=== PATIENT | male | born 1955 | race Caucasian/White ===

== ENCOUNTER 2019-05-07 11:33 | Inpatient (IN) | payer OTHER, MEDICARE, SELFPAY ==
[2019-05-07] VITALS (19 sets, daily range): BP systolic 130–187; BP diastolic 65–127; PULSE 64–107; RESP 11–24; TEMP 36.8–36.9; O2SAT 96–100
--- NOTE | ~2019-05-07 | US_ITS ---
EXAMINATION: US thrombin injection DATE: 05/09/2019 12:51 INDICATION: Left groin pseudoaneurysm. TECHNIQUE: The procedure and its risks, benefits, and alternatives were discussed with the patient. P otential risks discussed included groin artery or vein thrombosis. The patient understood the risks a nd agreed to proceed. The skin was prepped and draped in sterile fashion. 1% lidocaine was used for l ocal anesthesia. Under ultrasound guidance, a 25 gauge needle was inserted into the left groin pseudo aneurysm. Thrombin was injected into the pseudoaneurysm slowly to a total volume of 0.2 mL of 1000 U/ mL thrombin. The needle was removed. There were no immediate complications. FINDINGS: Ultrasound images demonstrate a left groin pseudoaneurysm. Final images demonstrate complete thrombos is of the pseudoaneurysm. IMPRESSION: 1. Successful ultrasound-guided left groin pseudoaneurysm thrombosis. Reviewed, dictated and finalized at location A. ING CAPTAIN
--- NOTE | ~2019-05-07 | US_ITS ---
EXAMINATION: US arterial duplex LE DATE: 05/09/2019 11:59 INDICATION: Left groin pain after cardiac catheterization. TECHNIQUE: Multiple grayscale and Doppler ultrasound images of the left inguinal region were obtained . COMPARISON: None FINDINGS: Left common femoral vein and femoral vein are patent. There is a 5.0 x 2.7 x 3.5 cm hematom a containing a 3.0 cm pseudoaneurysm with long neck superficial to left common femoral artery. IMPRESSION: 1. 3.0 cm pseudoaneurysm from left common femoral artery. Ultrasound-guided thrombin injection is rec ommended. Reviewed, dictated and finalized at location A. WAY RADIO INSTALLER IMPRESSION: 1. 3.0 cm pseudoaneurysm from left common femoral artery. Ultrasound-guided thr ombin injection is recommended.
--- NOTE | 2019-05-07 11:43 | ED.CHESTPAIN ---
HPI - Chest Pain General Chief Complaint: Chest Pain Stated Complaint: chest pain Time Seen by Provider: 05/07/19 11:42 Source: patient Mode of arrival: ambulatory Limitations: no limitations History of Present Illness HPI narrative: A 63 y/o male pt presents to the ED, with c/o chest tightness that began 45 minutes ago. He is unsure if he has had a similar event to this in the past. Pt has a PMHx of CAD, HTN, NIDDM, HLD and rheumatoid arthritis. Pt has a PSHx of a CABG in 2009 and a cardiac catheterization in 2009 and 2015. Pt denies any N/V or sweating. His programmer analyst health it is Dr. Isidro. MD complaint: chest pain (tightness) Pertinent past history: coronary artery disease and CABG Onset (ago): minute(s) (45) Timing of current episode: constant Quality: tightness Related Data Allergies Allergy/AdvReac Type Severity Reaction Status Date / Time morphine Allergy Unknown Hives / Verified 12/04/15 13:34 Red Face Penicillins Allergy Unknown Verified 12/04/15 13:34 Review of Systems Review of Systems: All systems reviewed & are unremarkable except as noted in HPI and below Constitutional: Constitutional: Denies excessive sweating Cardiovascular: Cardiovascular: Reports chest pain (tightness) Gastrointestinal: Gastrointestinal: Denies nausea and Denies vomiting PMFSH Past Medical History Medical History (Updated 05/07/19 @ 12:03 by [facility]) CAD (coronary artery disease) Hx of non-insulin dependent diabetes mellitus Hyperlipidemia Hypertension Rheumatoid arthritis Surgical History Surgical History (Updated 05/07/19 @ 12:01 by [facility]) History of cardiac cath Hx of CABG Social History Social History (Updated 05/07/19 @ 12:04 by [facility]) Smoking status: Never smoker Gender identity (if verbalized by the patient): Male Comments Pt's programmer analyst health it is Dr. Isidro. Pt's PCP is Dr. Salamanca. Exam Const: General: cooperative, no acute distress and alert Nutritional Appearance: well nourished Orientation/consciousness: patient oriented x3 Limitations: no limitations HENMT: Mouth: Yes lip normal and Yes moist mucous membranes Resp: Effort & Inspection: normal respiratory effort Auscultation: clear to auscultation bilaterally Cardio: Rate: regular rate Rhythm: regular rhythm GI: GI Palp: Yes Soft to palpation and No Tenderness to palpation present (GI) Auscultation: normal bowel sounds Skin: General skin exam: normal color Neuro: General: patient oriented x3 Cognition (Neuro): normal cognition Speech: normal speech Extrem: General: normal to inspection, full ROM and no clubbing, cyanosis or edema Psych: Mental Status: mental status grossly normal Affect: normal affect Attitude: cooperative Course Course Emergency Course: Patient presents with subtle inferior ST elevation with reciprocal ST depression consistent with possible STEMI. Patient has known cardiac history and is actively symptomatic. Patient evaluated in the emergency department by his programmer analyst health it and taken to the cardiac Shredding Specialist for emergent intervention. Reevaluation(s) Reevaluation #1: Patient was evaluated by Dr. Isidro. Patient now departing the emergency department with Shredding Specialist staff for emergent cardiac catheterization. Date: 05/07/19 Time: 11:54 Reevaluation #2: Dr. Isidro, the programmer analyst health it, responded to the overhead STEMI page and is here to evaluate the pt in the ED. Date: 05/07/19 Time: 11:45 Vital Signs Vital signs: Vital Signs Temperature 98.5 F 05/07/19 11:36 Pulse Rate 107 H 05/07/19 11:36 Respiratory Rate 20 05/07/19 11:36 Blood Pressure 177/83 H 05/07/19 11:36 Pulse Oximetry 100 05/07/19 11:36 Temperature 98.5 F 05/07/19 11:36 Pulse Rate 89 05/07/19 11:55 Respiratory Rate 21 H 05/07/19 11:53 Blood Pressure 187/92 H 05/07/19 11:45 Pulse Oximetry 99 05/07/19 11:53 MDM - Chest Pain Differential Diagnosis Differential d
--- NOTE | 2019-05-07 11:46 | ECG_ITS ---
Measurements Intervals [place] Rate: 89 P: 73 [place]: 194 QRS: 74 QRSD: 93 T: 23 QT: 342 QTc: 417 Interpretive Statements SINUS RHYTHM SUBTLE INFERIOR ST ELEVATION MYOCARDIAL INFARCT- ACUTE ABNORMAL ECG Electronically Signed On 05-07-2019 12:21:43 OVEN ATTENDANT by Noah Ariza D.O.
--- NOTE | 2019-05-07 11:56 | PC.NURSE ---
PT TAKEN DIR TO ROOM 13 AND PLACED ON MONITOR, EKG WAS DONE IN TRIAGE, PAGE OVERHEAD FOR STEMI AT 1144, DR PACHECO IN ROOM W/ PT AT 1145. DR BROWN IN ROOM AND IT INFRASTRUCTURE SPECIALIST TEAM AT 1150, DISCUSSED POC W/ PT.
[2019-05-07 11:59] LABS: Basophils Absolute Auto 0.1 K/mm3 (0.0-0.1); Basophils Percent Auto 0.7 % (0.2-1.2); Eosinophils Percent Auto 0.3 % (0-4.4); Hematocrit 49.3 % (42.0-52.0); Hemoglobin 16.7 g/dL (14.0-18.0); Immature Granulocyte Absolute 0.06 K/mm3 (0.00-0.031); Immature Granulocyte Percent A 0.7 % (0-0.5); Lymphocytes Absolute Auto 2.97 K/mm3 (0.9-3.2); Lymphocytes Percent Auto 32.8 % (18.3-44.2); Mean Corpuscular HGB Conc 33.9 g/dl (32-36); Mean Corpuscular Hemoglobin 29.7 pg (26-34); Mean Corpuscular Volume 87.7 fl (80-100); Mean Platelet Volume 10.5 fl (7.4-10.4); Monocytes Absolute Auto 0.7 K/mm3 (0.1-0.6); Monocytes Percent Auto 7.2 % (2.6-8.5); Neutrophils Absolute Auto 5.3 K/mm3 (1.3-6.7); Neutrophils Percent Auto 58.3 % (45.5-73.1); Platelet Count Result 257 k/mm3 (150-375); Red Blood Count 5.62 M/mm3 (4.6-6.20); Red Cell Distribution Width 12.3 % (11.5-14.5); White Blood Count 9.1 K/mm3 (4.5-10.0)
[2019-05-07 12:11] LABS: INR 0.9; Partial Thromboplastin Time 25.6 SECONDS (22.3-36.8); Prothrombin Time 12.2 Seconds (11.1-14.7)
[2019-05-07 12:13] LABS: Alanine Aminotransferase 32 U/L (4-50); Albumin Level 5.1 g/dL (3.5-5.1); Alkaline Phosphatase 68 U/L (38-126); Aspartate Amino Transferase 28 U/L (17-59); Bilirubin,Total 0.6 mg/dL (0.2-1.3); Blood Urea Nitrogen 19 mg/dL (9-20); Calcium 9.8 mg/dL (8.4-10.2); Carbon Dioxide 23 mmol/L (22-30); Chloride 100 mmol/L (98-107); Cholesterol 157 mg/dL (0-200); Estimated CRCL calculation 88 ml/min; Estimated Glomerular Filt Rate > 60; Glucose 268 mg/dL (75-110); HDL Direct 61 mg/dL; Potassium 3.7 mmol/L (3.4-5.0); Sodium 138 mmol/L (137-145); Triglycerides 174 mg/dL (<150)
[2019-05-07 12:24] LABS: Troponin I 0.013 ng/mL (0.000-0.034)
[2019-05-07 12:25] LABS: LDL Cholesterol Direct 80 mg/dL
--- NOTE | 2019-05-07 13:02 | ECG_ITS ---
Measurements Intervals [place] Rate: 85 P: 69 TN: 189 QRS: 63 QRSD: 101 T: -14 QT: 350 QTc: 417 Interpretive Statements SINUS RHYTHM INFERIOR INFARCT, PROBABLY RECENT BASELINE ARTIFACT- I, III, AVR, AVL, AVF, V1 ABNORMAL ECG Electronically Signed On 05-07-2019 13:48:00 HAND SCREEN PRINTER by Noah Ariza D.O.
--- NOTE | 2019-05-07 13:10 | WPDCARDPROC ---
Cardiac Cath Procedure Note Date of procedure:: 05/07/19 Performing physician:: Bassam Isidro MD Indication:: coronary artery disease presenting with chest pain, acute ST-elevation Brief clinical history:: 63-year-old man with history of coronary disease who underwent single-vessel CABG 10 years ago because of ostial LAD disease. He now presents with acute onset of chest pain and subtle but definite inferior current of injury Procedure Procedure performed:: emergency coronary angiography rossi angiography PCI to ostium of OM1 Sedation/Medication given:: 50 mg fentanyl 2 mg Versed case start time 1207 case end time 12:57 p.m. sedation provided by Liz Ramirez RN , trained observer Access site:: left femoral artery Estimated blood loss:: 20-30 cc Procedure note:: patient was brought to the cardiac laborer steel handling emergently with diagnosis of STEMI right left femoral triangles were prepared in the usual fashion. Anesthesia was provided with 1% lidocaine infiltrated locally. Per the despite a good palpable pulse in the right groin I was unable to puncture the artery and with therefore moved to the left groin with a left femoral artery was easily punctured. Following this coronary angiography was performed. The patient underwent left coronary angiography using a 5 [place] FL4 catheter and right coronary angiography using a 5 [place] JR4 catheter. I then injected the internal mammary graft using the JR4 catheter. The cine angiograms were then reviewed and PCI of the 1st OM of the circumflex was recommended and carried out as detailed below. Prior to PCI the 5 [place] sheath was changed over the guidewire for a 6 [place] sheath the patient was systemically anticoagulated with bolus and infusion of Angiomax and was given 180 mg of oral Brilinta. Aspirin was loaded in the emergency department. Following conclusion of the PCI the sheath was sutured into position the patient was taken to ICU room 4. For post LA PCI recovery in stable condition there were no evident procedural complications. Findings:: Central aortic pressure was 158/70. The left ventricle was not entered during this procedure the left main coronary is widely patent the LAD is 100% occluded at its ostium this is known to be a RADIO OPERATOR GROUND. Circumflex is a large caliber vessel which is dominant to the posterior circulation. The 1st large OM branch which takes off very proximally almost as a ramus intermedius has a high-grade somewhat complex 99% stenosis. There is IVETTE 3 flow in the vessel prior to PCI however. The remainder of the circumflex which is dominant has mild luminal irregularities but is not significantly disease. Right coronary artery is small in caliber non dominant and angiographically normal the left main coronary artery was engaged using a 6 [place] CLS 3.5 guiding catheter. I placed a BMW wire through the target lesion in into the proximal OM 1 branch. Because of the ostial nature of this disease I placed a 2nd BMW wire into the trunk of the circumflex proper. The target lesion was then pre-dilated with a 2.5 x 15 mm emerge balloon. Angiographically multiple views were taken as it was difficult to see visualized the ostium of this OM branch. Following the balloon dilation the target lesion was stented using 3.0 x 18 mm Xience Saranya drug-eluting stent with an excellent anatomical result. In the [place] caudal projection there appeared to be some plaque shifting into the origin of the trunk of the circumflex. I used the 3 mm stent balloon to cross into this vessel and made 1 balloon inflation restoring an excellent angiographic result to the entire area. This vessel was not disease to begin with and so I elected not to place additional stent material into this segment at the end of the procedure the target lesion in the entire proximal circumflex bifurcation was widely patent with IVETTE 3 flow Conclusion:: acute myocardial infarction with subtle inf
--- NOTE | 2019-05-07 13:19 | PM.IMHP ---
H&P: HPI History of Present Illness Chief complaint: ST-elevation AL Narrative: Abdifatah Washington is a 63 year old male With a known history of coronary artery disease who has been followed in my office for number of years. Back in 2009 he was presenting with ischemic symptoms and was found to have complex ostial stenosis of the LAD. After a long discussion with the decision was made to treat this surgically and he underwent a single-vessel YODER to the LAD and has done very well since then. Interestingly I just saw the patient in the office on 04/26/2019 for routine follow-up at which time he was feeling well reporting the ability to exercise on the treadmill several times per week with no difficulty and had no symptoms of any sort. This morning while at home doing normal household activities he noted the onset of retrosternal chest heaviness which was similar to his previous ischemic symptomatology. He presented to the ER within 30-40 minutes of symptom onset. His ECG was found to show subtle but definite inferior current of injury with minor inferior ST elevation and some ST depression reciprocal E. For this reason emergency STEMI was activated and he was taken to the cook house laborer at this time. Currently reports 4 to 5/10 chest pain. The patient received aspirin and 4000 units of heparin in the emergency department. Review of Systems Constitutional: Constitutional: Reports no additional constitutional complaints Eyes: Eyes: Reports no additional eye complaints ENT: Reports system reviewed and no additional complaints, except as documented Cardiovascular: Cardiovascular: Reports as per HPI Respiratory: Respiratory: Reports no additional respiratory complaints Gastrointestinal: Gastrointestinal: Reports no additional gastrointestinal complaints Genitourinary: Genitourinary: Reports no additional male genitourinary complaints Musculoskeletal: Musculoskeletal: Reports no additional musculoskeletal complaints Integumentary/Breasts: Skin/Breast: Reports system reviewed and no additional complaints, except as docu PMFSH Past Medical History Medical History (Updated 05/07/19 @ 12:03 by Joseph BushProgrameter) CAD (coronary artery disease) Hx of non-insulin dependent diabetes mellitus Hyperlipidemia Hypertension Rheumatoid arthritis Surgical History Surgical History (Updated 05/07/19 @ 12:01 by Joseph BushProgrameter) History of cardiac cath Hx of CABG Social History Social History (Updated 05/07/19 @ 12:04 by [employer]) Smoking status: Never smoker Gender identity (if verbalized by the patient): Male Meds Home Medications and Allergies Allergies Allergy/AdvReac Type Severity Reaction Status Date / Time morphine Allergy Unknown Hives / Verified 12/04/15 13:34 Red Face Penicillins Allergy Unknown Verified 12/04/15 13:34 Vital Signs Vital Signs - 24 hr 05/07/19 11:36 05/07/19 11:45 05/07/19 11:53 Temperature 36.9 C Pulse Rate 107 H 89 87 Respiratory Rate 20 23 H 21 H Blood Pressure 177/83 H 187/92 H Pulse Oximetry 100 98 99 05/07/19 11:55 Temperature Pulse Rate 89 Respiratory Rate Blood Pressure Pulse Oximetry Exam Const: General: uncomfortable Other: White male appearing his stated age in yzxh-vb-bgygdehc distress with chest pain HENMT: Mouth: Yes moist mucous membranes Eyes: Sclera: sclerae normal Pupils: Equal, round and reactive pupils present Neck: Neck: supple and no JVD Thyroid: thyroid normal Other: no audible carotid bruits Resp: Effort & Inspection: normal respiratory effort Auscultation: clear to auscultation bilaterally Cardio: Rate: regular rate Rhythm: regular rhythm Other: no murmur no rub S4 is noted at the apex GI: GI Palp: Yes Soft to palpation Auscultation: normal bowel sounds Skin: General skin exam: normal color Extrem: General: normal to inspection H&P: Results Labs Labs: Short CBC 05/07/19 Range/Units 11
--- NOTE | 2019-05-07 13:39 | ADMGEN ---
This patient, Abdifatah Washington, was admitted to Intensive Care Unit-4. Patient/family oriented to hospital policies and general routines including ID bracelet, bed and alarms, visiting hours, pain management, procedures, bathroom and other care routines, personal items, smoking policy, room service/diet, and visiting hours. Valuables list has been completed. Information on how to activate the Rapid Response Team has been discussed. Patient/Family are encouraged to report perceived risks to care and to ask questions if they do not understand what they are told or what they should do.
[2019-05-07] MEDS: SODIUM CHLORIDE 0.9% IV 1,000 ML 125 ML IV CONT (15:48)
[2019-05-07] MEDS: METOPROLOL TARTRATE 25 MG TABLET PO (20:11)
[2019-05-07] MEDS: TICAGRELOR 90 MG TABLET PO (20:12)
[2019-05-07] MEDS: MELATONIN 3 MG TABLET PO (20:57)
--- NOTE | 2019-05-07 21:49 | WPDCNINT ---
Assessment and Plan Assessment and plan (1) ST elevation (STEMI) myocardial infarction: Code(s): I21.3 - ST elevation (STEMI) myocardial infarction of unspecified site Status: Acute Assessment and Plan: - s/p INDIA to OM1 - started on [place] I/lopressor/ statin/ DAPT (2) Diabetes mellitus: Code(s): E11.9 - Type 2 diabetes mellitus without complications Status: Acute Assessment and Plan: - poorly controlled - will check hbaic in am - SSI for now (3) Hyperlipidemia: Code(s): E78.5 - Hyperlipidemia, unspecified Status: Acute Assessment and Plan: - continue high dose statin (4) DVT prophylaxis: Code(s): Z29.9 - Encounter for prophylactic measures, unspecified Status: Acute Assessment and Plan: sq lovenox Additional Plan time spent- 30 min Tree Wrapper Consult Note Consult date: 05/07/19 Time Seen: 15:04 HPI: Abdifatah Washington is a 63 year old male with PMHx of CAD s/p single vessel CABG 10 yrs ago who drove himself to ER due to worsening chest pressure . Per patient he had abnormal check up one week back with cardiology . He is active and runs on treadmill 3 times/week. He was doing some wood work this am and suddenly felt chest pressure. This was associated with tightness across his shoulders . There was no vomiting , nausea, diaphoresis or jaw pain. However the pressure and tightness in the chest continued to get worse and hence he decided to come to ER. In ER initial EKG showed subtle ST segment changes in inferior leads. He was hence taken to cardiac matlab developer . Patient underwent LHCwith placement of INDIA x1 in OM1 which was considered to be the culprit lesion . No complications were reported. Patient was Tx to post cath . On my assessment in ICU patient was awake and alert and in no distress. He felt much better and denied any chest pain or pressure. Review of Systems Constitutional: Constitutional: Reports no additional constitutional complaints Eyes: Eyes: Reports no additional eye complaints ENT: Reports system reviewed and no additional complaints, except as documented Cardiovascular: Cardiovascular: Reports as per HPI Respiratory: Respiratory: Reports no additional respiratory complaints Gastrointestinal: Gastrointestinal: Reports no additional gastrointestinal complaints Genitourinary: Genitourinary: Reports no additional male genitourinary complaints Musculoskeletal: Musculoskeletal: Reports no additional musculoskeletal complaints Integumentary/Breasts: Skin/Breast: Reports system reviewed and no additional complaints, except as docu PMFSH Past Medical History Medical History (Updated 05/07/19 @ 22:00 by Heidi Ge MD) CAD (coronary artery disease) Hx of non-insulin dependent diabetes mellitus Hyperlipidemia Hypertension Rheumatoid arthritis Surgical History Surgical History (Updated 05/07/19 @ 12:01 by Joseph Bush [employer]UK[employer] Undergarments) History of cardiac cath Hx of CABG Social History Social History (Updated 05/07/19 @ 12:04 by Joseph Bush [employer]UK[employer] Undergarments) Smoking status: Never smoker Second hand tobacco smoke exposure: Yes Alcohol intake: current Drinks per week: 12 Substance use: never Gender identity (if verbalized by the patient): Male Spiritual care concerns: No Agree to blood products: Yes Meds Home Medications and Allergies Home Medications Medication Instructions Recorded Confirmed Type dapagliflozin [Farxiga] 5 mg PO DAILY 05/07/19 05/07/19 History omega-3 acid ethyl esters 2 g PO DAILY 05/07/19 05/07/19 History rosuvastatin 40 mg PO DAILY 05/07/19 05/07/19 History Allergies Allergy/AdvReac Type Severity Reaction Status Date / Time morphine Allergy Unknown Hives / Verified 12/04/15 13:34 Red Face Penicillins Allergy Unknown Verified 12/04/15 13:34 Vital Signs Vital Signs - 24 hr 05/07/19 11:36 05/07/19 11:45 05/07/19 11:53 Temperature 36.9 C Pulse Rate 107 H 89 8
[2019-05-08] VITALS (15 sets, daily range): BP systolic 108–146; BP diastolic 68–84; PULSE 58–70; RESP 13–17; TEMP 36.6–36.9; O2SAT 95–100
[2019-05-08 05:04] LABS: Alanine Aminotransferase 29 U/L (4-50); Albumin Level 4.1 g/dL (3.5-5.1); Alkaline Phosphatase 46 U/L (38-126); Aspartate Amino Transferase 69 U/L (17-59); Bilirubin,Total 0.9 mg/dL (0.2-1.3); Blood Urea Nitrogen 13 mg/dL (9-20); Carbon Dioxide 20 mmol/L (22-30); Chloride 106 mmol/L (98-107); Estimated CRCL calculation 111 ml/min; Estimated Glomerular Filt Rate > 60; Glucose 185 mg/dL (75-110); Magnesium 2.1 mg/dL (1.6-2.3); Phosphorus 3.2 mg/dL (2.5-4.5); Potassium 4.2 mmol/L (3.4-5.0); Sodium 138 mmol/L (137-145)
--- NOTE | 2019-05-08 05:11 | ECG_ITS ---
Measurements Intervals [place] Rate: 74 P: 66 [place]: 215 QRS: 65 QRSD: 94 T: -31 QT: 394 QTc: 438 Interpretive Statements SINUS RHYTHM WITH FIRST DEGREE AV BLOCK INFERIOR INFARCT, AGE INDETERMINATE BORDERLINE T WAVE ABNORMALITY- LATERAL LEADS ABNORMAL ECG Electronically Signed On 05-08-2019 9:05:07 INDUSTRIAL PSYCHOLOGY PROFESSOR by Noah POWERS
[2019-05-08 07:21] LABS: Glucose Point of Care 143 (65-105)
[2019-05-08] MEDS: ROSUVASTATIN 10 MG TABLET 40 MG PO (08:57)
[2019-05-08] MEDS: PANTOPRAZOLE 40 MG TABLET PO (08:57)
[2019-05-08] MEDS: TICAGRELOR 90 MG TABLET PO ×2 (08:57→21:00)
[2019-05-08] MEDS: METOPROLOL TARTRATE 25 MG TABLET PO ×2 (08:57→21:00)
[2019-05-08] MEDS: ASPIRIN 81 MG CHEWABLE TABLET PO (08:58)
[2019-05-08] MEDS: LOSARTAN POTASSIUM 12.5 MG TABLET PO (08:58)
--- NOTE | 2019-05-08 09:37 | ECG_ITS ---
Measurements Intervals [place] Rate: 65 P: 19 [place]: 226 QRS: -31 QRSD: 94 T: 265 QT: 426 QTc: 445 Interpretive Statements SINUS RHYTHM WITH FIRST DEGREE AV BLOCK INFERIOR INFARCT, PROBABLY RECENT BORDERLINE T WAVE ABNORMALITY- LATERAL LEADS ABNORMAL ECG Electronically Signed On 05-08-2019 12:01:03 AUDIOMETRIC TECHNICIAN by Noah Ariza D.O.
[2019-05-08 12:06] LABS: Glucose Point of Care 188 (65-105)
--- NOTE | 2019-05-08 13:43 | PM.PNCARD ---
Progress Note: A&P Assessment and Plan (1) Diabetes mellitus: Code(s): E11.9 - Type 2 diabetes mellitus without complications Status: Acute Assessment and Plan: On Farxiga (2) Hyperlipidemia: Code(s): E78.5 - Hyperlipidemia, unspecified Status: Acute Assessment and Plan: On high-dose statin (3) CAD (coronary artery disease): Code(s): I25.10 - Atherosclerotic heart disease of [place] coronary artery without angina pectoris Status: Acute Assessment and Plan: Continue aspirin, Brilinta, metoprolol, losartan, statin Due to his limited benefit, I am going to stop byfr-vby-ypjxszh fish oil. Will start him on Vascepa 2 g p.o. b.i.d. as he has several indications including known coronary disease as well as diabetes with elevated triglycerides (4) Hypertension: Code(s): I10 - Essential (primary) hypertension Status: Acute Assessment and Plan: At goal Okay to transfer to IMU. Subjective Date/time seen: 05/08/19 13:43 Interval history: Chief complaint: Acute myocardial infarction and chest pain Date of service 05/08/2019 Feels well today. Does have some bruising about the left groin. No chest pain or shortness of breath Review of Systems Constitutional: Constitutional: Reports no additional constitutional complaints Eyes: Eyes: Reports no additional eye complaints ENT: Reports system reviewed and no additional complaints, except as documented Cardiovascular: Cardiovascular: Reports as per HPI Respiratory: Respiratory: Reports no additional respiratory complaints Gastrointestinal: Gastrointestinal: Reports no additional gastrointestinal complaints Genitourinary: Genitourinary: Reports no additional male genitourinary complaints Musculoskeletal: Musculoskeletal: Reports no additional musculoskeletal complaints Integumentary/Breasts: Skin/Breast: Reports system reviewed and no additional complaints, except as docu Neurologic: Reports Normal hearing present Psychiatric: Psychiatric: Denies confusion Endocrine: Endocrine: Denies flushing Hematologic/Lymphatic: Hematologic/Lymphatic: Reports easy bruising Allergic/Immunologic: Allergic/Immunologic: Denies itchy eyes Exam Const: General: uncomfortable Other: White male appearing his stated age in wraf-fa-ntozzemf distress with chest pain HENMT: Mouth: Yes moist mucous membranes Eyes: Sclera: sclerae normal Pupils: Equal, round and reactive pupils present Neck: Neck: supple and no JVD Thyroid: thyroid normal Other: no audible carotid bruits Resp: Effort & Inspection: normal respiratory effort Auscultation: clear to auscultation bilaterally Cardio: Rate: regular rate Rhythm: regular rhythm Other: no murmur no rub S4 is noted at the apex Left groin with a small hematoma. No bruit. Ecchymosis is appreciated GI: Auscultation: normal bowel sounds Skin: General skin exam: normal color Neuro: Cranial nerves: Yes Equal, round and reactive pupils present Extrem: General: normal to inspection Psych: Appearance: grossly normal Objective Data Vital Signs Vital Signs: Vital Signs - 24 hr 05/07/19 13:45 05/07/19 14:00 05/07/19 14:15 Temperature Pulse Rate 82 79 104 H Pulse Rate [Left Pedal (Dorsalis Pedis)] Respiratory Rate 14 11 L 24 H Blood Pressure 146/82 H 131/76 150/127 H Pulse Oximetry 98 97 97 05/07/19 15:00 05/07/19 16:00 05/07/19 17:00 Temperature Pulse Rate 73 70 64 Pulse Rate [Left Pedal (Dorsalis Pedis)] Respiratory Rate 13 11 L 15 Blood Pressure 154/78 H 143/77 H 132/80 Pulse Oximetry 99 99 96 05/07/19 18:00 05/07/19 18:50 05/07/19 19:00 Temperature Pulse Rate 71 71 72 Pulse Rate [Left Pedal (Dorsalis Pedis)] Respiratory Rate 14 17 12 Blood Pressure 135/77 130/75 147/65 H Pulse Oximetry 100 99 100 05/07/19 19:30 05/07/19 20:00 05/07/19 20:11 Temperature Pulse Rate 73 71 71 Pulse Rate [Left Pedal (Dorsa
--- NOTE | 2019-05-08 14:31 | PCCPR ---
visited pt to discuss cardiac rehab
[2019-05-08 18:28] LABS: Glucose Point of Care 190 (65-105)
--- NOTE | 2019-05-08 22:09 | PC.NURSE ---
This patient, Abdifatah Washington, was received from [icu ] on 05/08/19 at 2100. Personal belongings list checked and signed. Patient/family oriented to unit policies and routines
[2019-05-09] VITALS (10 sets, daily range): BP systolic 95–133; BP diastolic 63–72; PULSE 70–94; RESP 18–20; TEMP 36.6–36.7; O2SAT 95–100
[2019-05-09] MEDS: TICAGRELOR 90 MG TABLET PO (08:34)
[2019-05-09] MEDS: PANTOPRAZOLE 40 MG TABLET PO (08:35)
[2019-05-09] MEDS: ROSUVASTATIN 10 MG TABLET 40 MG PO (08:35)
[2019-05-09] MEDS: METOPROLOL TARTRATE 25 MG TABLET PO (08:36)
[2019-05-09] MEDS: ASPIRIN 81 MG CHEWABLE TABLET PO (08:36)
[2019-05-09] MEDS: LOSARTAN POTASSIUM 12.5 MG TABLET PO (08:36)
[2019-05-09 08:48] LABS: Glucose Point of Care 271 (65-105)
[2019-05-09] MEDS: INSULIN ASPART (*BKC) 100 UNITS/ML SUB-Q (10:13)
--- NOTE | 2019-05-09 10:44 | PM.DS ---
DS: Diagnosis Admitting Diagnosis Admitting Diagnosis: Anterior sT elevation (STEMI) myocardial infarction Discharge Diagnosis (1) CAD (coronary artery disease): Qualifiers: Associated angina: without angina Coronary Disease-Associated Artery/Lesion type: [place] artery [place] vs. transplanted heart: [place] heart Qualified Code(s): I25.10 - Atherosclerotic heart disease of [place] coronary artery without angina pectoris Code(s): I25.10 - Atherosclerotic heart disease of [place] coronary artery without angina pectoris Status: Acute Assessment and Plan: Continue aspirin, Brilinta, metoprolol, losartan, rosuvastatin Due to his limited benefit, izwy-quo-temcffq fish oil was stopped. Will start him on Vascepa 2 g p.o. b.i.d at discharge as he has several indications including known coronary disease as well as diabetes with elevated triglycerides (2) Diabetes mellitus: Qualifiers: Diabetes mellitus complication status: without complication Diabetes mellitus fdc insulin use: without fdc use Diabetes mellitus type: type 2 Qualified Code(s): E11.9 - Type 2 diabetes mellitus without complications Code(s): E11.9 - Type 2 diabetes mellitus without complications Status: Acute Assessment and Plan: On Farxiga (3) Hyperlipidemia: Qualifiers: Hyperlipidemia type: mixed hyperlipidemia Qualified Code(s): E78.2 - Mixed hyperlipidemia Code(s): E78.5 - Hyperlipidemia, unspecified Status: Acute Assessment and Plan: On high-dose statin (4) Hypertension: Qualifiers: Hypertension type: essential hypertension Qualified Code(s): I10 - Essential (primary) hypertension Code(s): I10 - Essential (primary) hypertension Status: Acute Assessment and Plan: At goal DS: Summary Hospital Course Reason for hospitalization: chest pain Hospital Course: 63-year-old male with a known history of coronary artery disease which included complex ostial stenosis of the LAD back in 2009. At that time he underwent single-vessel YODER to the LAD and had done well. He saw Dr. Isidro in the office on April 26 at which time he was able to exercise on the treadmill several times per week with no difficulty or symptoms of any sort. He presented to the hospital on 05/07/2019 with chest pain. EKG revealed minor ST elevation in the inferior leads and some reciprocal changes. He was taken emergently to the cardiac catheterization lab with findings of: acute myocardial infarction with subtle inferior ST segment elevation resulting from subtotal stenosis of the large OM 1/ramus intermedius branch of the circumflex . Chronic total occlusion of the LAD at its ostium . Remaining patency of the YODER graft to the placed to the LAD 10 years ago. Non dominant non diseased right coronary artery. He proceeded on to intervention at the ostium of OM1 using the 3.0 x 18 mm Xience Saranya drug-eluting stent with an excellent anatomical result.. He had hematoma formation in the left groin site. Assessment on 05/07/[address] Lopez documented that he had no bruit. On day of discharge 05/09/2019 he was pain-free, denied shortness of breath, no lightheadedness or palpitations. The left groin site was tender with significant ecchymosis. The hematoma was soft. A bruit was noted. Ultrasound revealed a pseudoaneurysm. This was successfully thrombosed. After period of bed rest he was allowed out of bed. 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 No femoral bruit noted prior to discharge. He was discharged home in stable and pain-free condition. Status at Discharge Functional status at discharge: independent ambulation Overall status at discharge: patient is back to baseline Time Spent with Patient Time attestation: Total time spen
[2019-05-09 13:49] LABS: Glucose Point of Care 186 (65-105)
== END 2019-05-09 16:05 | disposition home or self-care (01) | DRG 247 ==
LOC: ANHED 11:59 → ANHICU 13:11 → ANHIMU 05-09 10:43 → ANHICU 05-11 09:56 → ANHIMU 05-11 09:56
PROVIDERS: Internal Medicine Cardiovascular Disease; Internal Medicine Critical Care Medicine; Admitting Provider Specialist; Emergency Provider Emergency Medicine; PCP Internal Medicine; Visit Provider Internal Medicine Cardiovascular Disease
PROC: 4A023N7 Measurement of Cardiac Sampling and Pressure, Left Heart, Percutaneous Approach (ICD-10-PCS; CPT 93452; principal; 2019-05-07 12:10)
PROC: 027034Z Dilation of Coronary Artery, One Artery with Drug-eluting Intraluminal Device, Percutaneous Approach (ICD-10-PCS; 2019-05-07 12:10)
DX: I21.29 ST elevation (STEMI) myocardial infarction involving other sites (principal); T81.718A Complication of other artery following a procedure, not elsewhere classified, initial encounter; I21.3 ST elevation (STEMI) myocardial infarction of unspecified site; I25.10 Atherosclerotic heart disease of native coronary artery without angina pectoris; Z95.1 Presence of aortocoronary bypass graft; E78.5 Hyperlipidemia, unspecified; I10 Essential (primary) hypertension; M06.9 Rheumatoid arthritis, unspecified; E11.9 Type 2 diabetes mellitus without complications; I25.82 Chronic total occlusion of coronary artery; I72.4 Aneurysm of artery of lower extremity
CPT/HCPCS: 36002; 36415; 76942; 80053; 80061; 83036; 83735; 84100; 84484; 85025; 85610; 85730; 86850; 86900; 86901; 87081; 93005; 93458; 93926; 99285; A9270; C1725; C1769; C1874; C1887; C1894; C9606; J0583; J1644; J1815; J2250; J3010; J7030

== ENCOUNTER 2021-12-16 00:18 | Day surgery (SDC) | payer OTHER, MEDICARE, SELFPAY ==
[2021-11-09 14:10] VITALS: BMI 28.7
--- NOTE | 2021-12-02 14:53 | PC.NURSE ---
PAT call was done on 11/09/2021. Pt was rescheduled. No changes in medication or health history since 11/09/2021. Pt aware of arrival and procedure time. No further questions.
--- NOTE | 2021-12-14 13:05 | PM.HPGS ---
History of Present Illness History of Present Illness Consent: Risks, benefits, and alternatives have been discussed and questions answered. Patient agrees to proceed with procedure. Chief complaint: positive cologuard Narrative: Abdifatah Washington is a 66 year old male Referred for colon cancer screening. He had performed a Cologuard test which was positive. Review of Systems Review of Systems: All systems reviewed & are unremarkable except as noted in HPI and below PMFSH Past Medical History Medical History CAD (coronary artery disease) Hx of non-insulin dependent diabetes mellitus Hyperlipidemia Hypertension Rheumatoid arthritis Surgical History Surgical History History of cardiac cath Hx of CABG Social History Social History Smoking status: Never smoker Second hand tobacco smoke exposure: Yes Alcohol intake: current Drinks per week: 10 Substance use: never Living arrangements: with family Gender identity (if verbalized by the patient): Male Spiritual care concerns: No Agree to blood products: Yes Meds Home Medications and Allergies Home Medications Medication Instructions Recorded Confirmed Type dapagliflozin 5 mg tablet (Farxiga) 10 mg PO DAILY 05/07/19 12/02/21 History rosuvastatin 40 mg tablet 40 mg PO DAILY 05/07/19 12/02/21 History aspirin 81 mg chewable tablet 81 mg PO DAILY@0800 #30 tabs 05/09/19 12/02/21 Rx (Children's Aspirin) baricitinib 2 mg tablet (Olumiant) 2 mg PO DAILY 05/09/19 12/02/21 History losartan 25 mg tablet 12.5 mg PO DAILY #30 tabs 05/09/19 12/02/21 Rx metoprolol tartrate 25 mg tablet 25 mg PO Q12HR #60 tabs 05/09/19 12/02/21 Rx nitroglycerin 0.4 mg sublingual 0.4 mg sublingual DIRECTED PRN 05/09/19 12/02/21 Rx tablet chest pain #25 tabs semaglutide 0.25 mg or 0.5 mg (2 0.25 mg subcut WEEKLY 11/09/21 12/02/21 History mg/1.5 mL) subcutaneous pen injector (Ozempic) Allergies Allergy/AdvReac Type Severity Reaction Status Date / Time morphine Allergy Unknown Hives / Verified 12/16/21 06:53 Red Face Penicillins Allergy Unknown Hives Verified 12/16/21 06:53 Exam Resp: Auscultation: clear to auscultation bilaterally Cardio: Rate: regular rate Rhythm: regular rhythm GI: GI Palp: Yes Soft to palpation and No Tenderness to palpation present (GI) Assessment and Plan Assessment and plan (1) Colon cancer screening: Code(s): Z12.11 - Encounter for screening for malignant neoplasm of colon Status: Acute Assessment and Plan: Colonoscopy with possible biopsy or polypectomy or cautery or injection of substances.
[2021-12-16 06:53] VITALS: BP 150/74; PULSE 70; RESP 20; TEMP 36.6; O2SAT 100; BMI 28.3
[2021-12-16] MEDS: LACTATED RINGERS 1,000 ML 150 ML IV CONT (07:24)
[2021-12-16 07:26] LABS: Glucose Point of Care 141 mg/dl (65-105)
--- NOTE | 2021-12-16 07:39 | WPDANESEPPF ---
Anes - Initial Pre Proc Eval Procedure: Operation Date: 12/16/21 08:00 Proposed Procedures p Colonoscopy - Gustavo Valerio MD Date/Time: 12/16/21 07:39 Surgeon: Gustavo Valerio MD Pre Op Diagnosis: positive cologuard Patient Data Age: 66 Gender: M Height: 1.78 m Weight: 89.4 kg Last Vital Signs Temp 36.6 C 12/16/21 06:53 Pulse 70 12/16/21 06:53 Resp 20 12/16/21 06:53 BP 150/74 H 12/16/21 06:53 Pulse Ox 100 12/16/21 06:53 O2 Del Method Room Air 12/16/21 06:53 Allergies Allergy/AdvReac Type Severity Reaction Status Date / Time morphine Allergy Unknown Hives / Verified 12/16/21 06:53 Red Face Penicillins Allergy Unknown Hives Verified 12/16/21 06:53 Home Medications Medication Instructions Recorded Confirmed Type dapagliflozin 5 mg tablet (Farxiga) 10 mg PO DAILY 05/07/19 12/02/21 History rosuvastatin 40 mg tablet 40 mg PO DAILY 05/07/19 12/02/21 History baricitinib 2 mg tablet (Olumiant) 2 mg PO DAILY 05/09/19 12/02/21 History losartan 25 mg tablet 12.5 mg PO DAILY #30 tabs 05/09/19 12/02/21 Rx metoprolol tartrate 25 mg tablet 25 mg PO Q12HR #60 tabs 05/09/19 12/02/21 Rx nitroglycerin 0.4 mg sublingual 0.4 mg sublingual DIRECTED PRN 05/09/19 12/02/21 Rx tablet chest pain #25 tabs semaglutide 0.25 mg or 0.5 mg (2 0.25 mg subcut WEEKLY 11/09/21 12/02/21 History mg/1.5 mL) subcutaneous pen injector (Ozempic) aspirin 81 mg chewable tablet 81 mg PO DIRECTED 12/16/21 12/16/21 History (Children's Aspirin) Laboratory Tests 12/16/21 07:21 POC Capillary Glucose 141 mg/dl H mg/dl (65-105) Patient hx anesthesia problems: none Family hx anesthesia problems: none Results Review: All pre-operative results and documents have been reviewed as part of the pre-operative evaluation. [facility] Past Medical History Medical History CAD (coronary artery disease) Hx of non-insulin dependent diabetes mellitus Hyperlipidemia Hypertension Rheumatoid arthritis Surgical History Surgical History History of cardiac cath Hx of CABG Social History Social History Smoking status: Never smoker Second hand tobacco smoke exposure: Yes Alcohol intake: current Drinks per week: 10 Substance use: never Living arrangements: with family Gender identity (if verbalized by the patient): Male Spiritual care concerns: No Agree to blood products: Yes Anes - Eval Final PreProcedure Day of Procedure 12/16/21 07:39 Patient weight: overweight Heart: regular rate and rhythm Lungs: clear to auscultation Airway: Mallampati scale class II Neurological: alert and oriented Last oral intake: >/= 8 hours ASA classification: III Emergent: no Anesthetic plan: proceed Anesthesia type and monitoring: general GIVS and standard monitoring Results Review: All pre-operative results and documents have been reviewed as part of the pre-operative evaluation. Informed Consent: The patient's anesthetic plan and its attendant risks and benefits were discussed with the patient/family/POA. Questions were solicited and answers provided to the satisfaction of the patient/family/POA.
[2021-12-16 08:29] VITALS: BP 115/60; PULSE 63; RESP 26; O2SAT 98
[2021-12-16 08:39] VITALS: BP 116/69; PULSE 62; RESP 18; O2SAT 98
[2021-12-16 08:49] VITALS: BP 124/78; PULSE 65; RESP 18; O2SAT 98
== END 2021-12-16 08:59 | disposition home or self-care (01) ==
PROVIDERS: PCP Internal Medicine; Visit Provider Internal Medicine Gastroenterology
PROC: 0DJD8ZZ Inspection of Lower Intestinal Tract, Via Natural or Artificial Opening Endoscopic (ICD-10-PCS; CPT 45378; principal; 2021-12-16 08:00)
DX: Z12.11 Encounter for screening for malignant neoplasm of colon (principal); R19.5 Other fecal abnormalities; I10 Essential (primary) hypertension; E11.9 Type 2 diabetes mellitus without complications; E78.5 Hyperlipidemia, unspecified; M06.9 Rheumatoid arthritis, unspecified; I25.10 Atherosclerotic heart disease of native coronary artery without angina pectoris; Z95.1 Presence of aortocoronary bypass graft; Z79.84 Long term (current) use of oral hypoglycemic drugs; Z79.899 Other long term (current) drug therapy; Z79.82 Long term (current) use of aspirin
CPT/HCPCS: 45378; 82948; J2704; J7120

== ENCOUNTER 2022-06-15 08:58 | Inpatient (IN) | payer OTHER, MEDICARE, SELFPAY ==
[2022-06-15] VITALS (46 sets, daily range): BP systolic 104–159; BP diastolic 65–89; PULSE 65–78; RESP 8–21; TEMP 36.2–37.2; O2SAT 94–100; BMI 28.6
--- NOTE | 2022-06-15 | ECHO_ITS ---
Patient Info Name: Abdifatah Washington Age: 66 years : 1955 Gender: Male Ht: 70 in Wt: 199 lbs BSA: 2.13 m2 HR: 65 bpm BP: 115 / 75 mmHg Heart Rhythm: Sinus Rhythm Technical Quality: Fair Exam Date: 06/15/2022 4:32 PM Exam Location: [facility] Pulmonary Patient Status: Inpatient Admit Date: 06/15/2022 Staff Ordering Physician: Jessica Perez MD (joseph/[email or web address]) Horse Wrangler: Julianna Ambriz RDCS Attending Provider: Kassidy Valadez MD Referring Physician: Chris HOLT; Exam Type: CA echo dop color flow w con Study Info Indications R07.9 - Chest pain, unspecified Complete two-dimensional, color flow and Doppler transthoracic echocardiogram is performed with contrast to opacify the left ventricle and to improve the deliniation of the left ventricle endocardial borders. Contrast/Agitated Saline Contrast/Ag. Saline: Definity Amount: 3.00 ml Administered By: Julianna Ambriz RDCS Existing IV Access: Yes IV Access Condition: patent with no signs of infiltration Summary 1. Left ventricular chamber dimension is normal. 2. Left ventricular systolic function is normal, estimated at 55-60%. 3. There is mildly increased left ventricular wall thickness. 4. The left ventricular diastolic function is grade I diastolic dysfunction. 5. Right ventricular chamber dimension is mildly enlarged. 6. Right ventricular systolic function is mildly reduced. 7. There is mild aortic valve sclerosis. 8. The mitral valve annulus is mildly calcified. 9. There is trace mitral valve regurgitation. 10. There is trace tricuspid valve regurgitation. 11. There is moderate aortic atherosclerosis. Left Ventricle Left ventricular chamber dimension is normal. Left ventricular systolic function is normal, estimated at 55-60%. There is mildly increased left ventricular wall thickness. The left ventricular diastolic function is grade I diastolic dysfunction. Right Ventricle Right ventricular chamber dimension is mildly enlarged. Right ventricular systolic function is mildly reduced. Left Atria Left atrial chamber dimension is normal. Right Atria Right atrial chamber dimension is normal. Atrial Septum Intact interatrial septum visualized by color flow imaging. Aortic Valve The aortic valve is probable trileaflet. There is mild aortic valve sclerosis. There is no aortic valve stenosis. There is no aortic valve regurgitation. Pulmonic Valve The pulmonic valve is not well visualized. Mitral Valve The mitral valve has normal leaflets. There is no mitral valve stenosis. There is trace mitral valve regurgitation. The mitral valve annulus is mildly calcified. Tricuspid Valve There is trace tricuspid valve regurgitation. Pericardium/Pleural The pericardium appears epicardial fat pad. There is no pericardial effusion. Aorta The aortic root size at the sinus of Valsalva is normal. There is moderate aortic atherosclerosis. Left Ventricular Outflow Tract Name Value Normal LVOT 2D LVOT Diameter 1.98 cm LVOT Doppler LVOT Peak Gradient 2 mmH
--- NOTE | ~2022-06-15 | XR_ITS ---
EXAMINATION: XR chest 2V DATE: 06/15/2022 09:20 INDICATION: Chest pain radiating to left shoulder. TECHNIQUE: Frontal and lateral views of the chest were obtained. COMPARISON: Chest 2 views 07/24/2012 FINDINGS: The chest demonstrates clear lungs without pneumonia, pleural effusion, or pneumothorax. Th e heart size is normal. Median sternotomy wires and mediastinal surgical clips are seen, likely from prior coronary artery bypass grafting. IMPRESSION: 1. No acute cardiopulmonary disease. Reviewed, dictated and finalized at location A.
--- NOTE | 2022-06-15 09:03 | ECG_ITS ---
Measurements Intervals [place] Rate: 74 P: 23 AL: 202 QRS: 62 QRSD: 94 T: 1 QT: 398 QTc: 442 Interpretive Statements SINUS RHYTHM WITH FIRST DEGREE AV BLOCK MINIMAL Q WAVES- INFERIOR LEADS BASELINE ARTIFACT- I, III, AVR, AVL, AVF, V1-V6 BORDERLINE ECG COMPARED TO ECG 05/08/2019 09:37:23 NO SIGNIFICANT CHANGES Electronically Signed On 06-15-2022 9:16:26 CDT by Noah Ariza D.O.
[2022-06-15 10:01] LABS: Basophils Absolute Auto 0.1 K/mm3 (0.0-0.1); Eosinophils Percent Auto 0.5 % (0-4.4); Hematocrit 45.8 % (42.0-52.0); Immature Granulocyte Absolute 0.01 K/mm3 (0.00-0.031); Immature Granulocyte Percent A 0.2 % (0-0.5); Lymphocytes Absolute Auto 1.34 K/mm3 (0.9-3.2); Lymphocytes Percent Auto 21.4 % (18.3-44.2); Mean Corpuscular HGB Conc 34.9 g/dl (32-36); Mean Corpuscular Hemoglobin 30.9 pg (26-34); Mean Corpuscular Volume 88.6 fl (80-100); Mean Platelet Volume 9.9 fl (7.4-10.4); Monocytes Absolute Auto 0.4 K/mm3 (0.1-0.6); Neutrophils Absolute Auto 4.4 K/mm3 (1.3-6.7); Neutrophils Percent Auto 69.9 % (45.5-73.1); Platelet Count Result 210 k/mm3 (150-375); Red Blood Count 5.17 M/mm3 (4.6-6.20); Red Cell Distribution Width 12.7 % (11.5-14.5); White Blood Count 6.3 K/mm3 (4.5-10.0)
[2022-06-15] MEDS: ASPIRIN 81 MG CHEWABLE TABLET 324 MG PO (10:01)
--- NOTE | 2022-06-15 10:09 | ED.GENADULT ---
HPI - General Adult General Chief complaint: Chest Pain Stated complaint: chest pain Time Seen by Provider: 06/15/22 09:09 History of Present Illness HPI narrative: 66-year-old male with history of coronary artery disease, high cholesterol, diabetes and hypertension presenting to the emergency department for evaluation of left shoulder pain. Patient does have a prior history of stents approximately [address] Isidro. Patient states over the last few weeks he has had 2 episodes of increased pain in his left shoulder. Patient states last week the pain lasted all day and felt like he needed to pop his shoulder. Patient denies any radiation of the pain to his back or to his arm at that time. Patient states he went to bed at the pain and woke up and is feeling improved. Patient states when he woke up this morning he was once again having some left shoulder pain. Patient denies any radiation of the pain into his back arm or neck. Patient states he does have some tenderness of his left shoulder. Patient does have nitro at home but did not take it. Patient did take a baby aspirin this morning. Patient did take his metoprolol and rosuvastatin this morning. Related Data Home Medications Medication Instructions Recorded Confirmed dapagliflozin 5 mg tablet (Farxiga) 10 mg PO DAILY 05/07/19 06/15/22 rosuvastatin 40 mg tablet 40 mg PO DAILY 05/07/19 06/15/22 baricitinib 2 mg tablet (Olumiant) 2 mg PO DAILY 05/09/19 06/15/22 semaglutide 0.25 mg or 0.5 mg (2 0.05 mg subcut WEEKLY 11/09/21 06/15/22 mg/1.5 mL) subcutaneous pen injector (Ozempic) aspirin 81 mg chewable tablet 81 mg PO DIRECTED 12/16/21 06/15/22 (Children's Aspirin) Allergies Allergy/AdvReac Type Severity Reaction Status Date / Time morphine Allergy Unknown Hives / Verified 06/15/22 09:56 Red Face Penicillins Allergy Unknown Hives Verified 06/15/22 09:56 Review of Systems Review of Systems: All systems reviewed & are unremarkable except as noted in HPI and below PMFSH Past Medical History Medical History CAD (coronary artery disease) Coronary artery disease Hyperlipidemia Hypertension Rheumatoid arthritis Type 2 diabetes mellitus Surgical History Surgical History History of cardiac cath History of coronary artery stent placement History of single vessel coronary artery bypass (2010) YODER to LAD. Family History Family History Mother Breast cancer Father Coronary artery disease Social History Social History Social History: Surrogate medical decision maker: Ivelisse Washington, spouse. Code status: Full code. Smoking status: Never smoker Second hand tobacco smoke exposure: Yes Alcohol intake: current Drinks per week: 10 Substance use: never Lack of Transportation: No Lack of Food: Never True Current Housing: I Do Not Have Housing Concerned About Future Housing: No Difficulty Paying Gas/Electric Bills: No Difficulty Paying for Meds: No Currently Unemployed: No Education: High School Diploma/GED Difficulty w/ Childcare or Family Care: No Living arrangements: with family Additional living arrangements comments: Lives with spouse in [place]. Additional occupation/education comments: Retired [employer]. Spiritual care concerns: No Agree to blood products: Yes Exam Narrative: APPEARANCE: Well appearing, no pain, no distress, well-nourished. HEAD: normocephalic, atraumatic. EYES: PERRLA/EOMI, conjunctivae clear. NOSE: Normal no drainage EARS:TMS clear with good light reflex. THROAT: Pharynx clear, no exudate. NECK: Supple. No adenopathy, no masses. RESPIRATORY: Airway patent, respirations nonlabored. Clear to auscultation bilaterally, no rales, rhonchi, wheezing. CARDIOVASC
[2022-06-15 10:14] LABS: Partial Thromboplastin Time 28.4 SECONDS (22.3-36.8)
[2022-06-15 10:16] LABS: Alanine Aminotransferase 43 U/L (6-50); Albumin Level 4.7 g/dL (3.5-5.1); Alkaline Phosphatase 54 U/L (38-126); Anion Gap 6 mmol/L (8-16); Aspartate Amino Transferase 34 U/L (17-59); Blood Urea Nitrogen 14 mg/dL (9-20); Calcium 9.1 mg/dL (8.4-10.2); Carbon Dioxide 26 mmol/L (22-30); Chloride 106 mmol/L (98-107); Estimated CRCL calculation 84 ml/min; Estimated Glomerular Filt Rate > 60; Glucose 171 mg/dL (65-110); Lipase 109 U/L (23-300); Potassium 4.5 mmol/L (3.4-5.0); Sodium 138 mmol/L (137-145)
[2022-06-15 10:23] LABS: D Dimer 0.33 ug/mL (<0.48)
[2022-06-15] MEDS: ASPIRIN 81 MG CHEWABLE TABLET 243 MG PO (10:30)
[2022-06-15 10:33] LABS: Troponin I 0.046 ng/mL (0.000-0.034)
[2022-06-15] MEDS: HEPARIN SODIUM 5,000 UNITS/ML VIAL 4000 UNITS IV PUSH ×2 (11:07→21:51)
[2022-06-15] MEDS: HEPARIN SOD/D5W 100 UNITS/ML 25,000 UNITS/250 ML BAG 10 UNITS IV CONT (11:07)
[2022-06-15 11:45] LABS: INR 1.1
[2022-06-15 12:15] LABS: Partial Thromboplastin Time > 200.0 SECONDS (22.3-36.8)
[2022-06-15 12:50] LABS: Troponin I 0.067 ng/mL (0.000-0.034)
--- NOTE | 2022-06-15 13:00 | PM.IMHP ---
H&P: HPI History of Present Illness Date/Time: 06/15/22 13:00 Chief Complaint: Chest pain. Narrative: This is a pleasant 66-year-old male with premature coronary artery disease status post single-vessel YODER to LAD in 2009 at age 54 and PCI to OM1 in May 2019, hypertension, hyperlipidemia, type 2 diabetes mellitus, and rheumatoid arthritis who presented to the emergency department from home for evaluation of chest pain. Patient provides the following history.About a week ago simply while sitting down he developed left anterior chest pressure radiating to the back and left shoulder. The symptoms lasted nearly all day and he took some aspirin before going to bed and awoke feeling just fine. His symptoms returned today and they are exactly the same symptoms he had prior to his bypass 12 years ago and he came in for evaluation. He denies lightheadedness, sweats, nausea, vomiting, and shortness of breath. His vital signs were stable on arrival. Initial troponin was 0.046 and EKG showed no acute ST segment elevations or depressions, relatively unchanged from prior tracings. Given his history, he has been started on heparin drip and is being admitted in this setting for close monitoring and Cardiology consultation. At the time my evaluation he is without chest discomfort. Review of Systems Review of Systems: Twelve systems were reviewed. No fever, chills, or sweats. No recent cold or flu symptoms. No palpitations or sensations of racing heart. Except as documented, all other systems were reviewed and are negative. [facility], [facility] Past Medical History Medical History (Updated 06/15/22 @ 14:10 by Madalyn Fields PA-C) CAD (coronary artery disease) Coronary artery disease Hyperlipidemia Hypertension Rheumatoid arthritis Type 2 diabetes mellitus Surgical History Surgical History (Updated 06/15/22 @ 14:06 by Madalyn Fields PA-C) History of cardiac cath History of coronary artery stent placement History of single vessel coronary artery bypass (2009) YODER to LAD. Family History Family History (Updated 06/15/22 @ 14:07 by Madalyn Fields PA-C) Mother Breast cancer Father Coronary artery disease Social History Social History (Updated 06/15/22 @ 14:08 by Madalyn Fields PA-C) Social History: Surrogate medical decision maker: Ivelisse Washington, spouse. Code status: Full code. Smoking status: Never smoker Second hand tobacco smoke exposure: Yes Alcohol intake: current Drinks per week: 10 Substance use: never Living arrangements: with family Additional living arrangements comments: Lives with spouse in [place]. Additional occupation/education comments: Retired [employer]. Spiritual care concerns: No Agree to blood products: Yes Meds Home Medications and Allergies Home Medications Medication Instructions Recorded Confirmed Type dapagliflozin 5 mg tablet (Farxiga) 10 mg PO DAILY 05/07/19 12/02/21 History rosuvastatin 40 mg tablet 40 mg PO DAILY 05/07/19 12/02/21 History baricitinib 2 mg tablet (Olumiant) 2 mg PO DAILY 05/09/19 12/02/21 History losartan 25 mg tablet 12.5 mg PO DAILY #30 tabs 05/09/19 12/02/21 Rx metoprolol tartrate 25 mg tablet 25 mg PO Q12HR #60 tabs 05/09/19 12/02/21 Rx nitroglycerin 0.4 mg sublingual 0.4 mg sublingual DIRECTED PRN 05/09/19 12/02/21 Rx tablet chest pain #25 tabs semaglutide 0.25 mg or 0.5 mg (2 0.25 mg subcut WEEKLY 11/09/21 12/02/21 History mg/1.5 mL) subcutaneous pen injector (Ozempic) aspirin 81 mg chewable tablet 81 mg PO DIRECTED 12/16/21 12/16/21 History (Children's Aspirin) Allergies Allergy/AdvReac Type Severity Reaction Status Date / Time morphine Allergy Unknown Hives / Verified 06/15/22 09:56 Red Face Penicillins Allergy Unknown Hives Verified 06/15/22 09:56 Vital Signs Vital Signs - 24 hr 06/15/22 09:12 06/15/22 09:11 06/15/22 09:15 Temperature 98.9 F Pulse Rate 71 72 71 Respiratory Rate 18 8 L 10
[2022-06-15] MEDS: CLOPIDOGREL BISULFATE 300 MG TABLET 600 MG PO (15:50)
[2022-06-15] MEDS: SODIUM CHLORIDE 0.9% IV 500 ML 100 ML IV CONT ×2 (15:50→21:51)
--- NOTE | 2022-06-15 16:16 | PM.CNCAR ---
Assessment and Plan Assessment and plan (1) Non-ST elevation [place] (NSTEMI): Code(s): I21.4 - Non-ST elevation (NSTEMI) myocardial infarction Status: Acute Assessment and Plan: Continue Heparin drip. Trend troponins until peak. Obtain TTE. Recommended cardiac cath. Discussed with the patient regarding recommendation including indication for procedure, procedure details, risks vs benefits, etc. Patient is agreeable. Will plan for cardiac cath 06/16. Patient to be NPO at midnight. ASA 81mg once daily. Will load with Plavix 600mg x 1, followed by 75mg QD. High-intensity statin PRN NTG (2) Coronary artery disease: Code(s): I25.10 - Atherosclerotic heart disease of [place] coronary artery without angina pectoris Status: Acute Assessment and Plan: ASA daily, statin (3) Hypertension: Qualifiers: Hypertension type: essential hypertension Qualified Code(s): I10 - Essential (primary) hypertension Code(s): I10 - Essential (primary) hypertension Status: Acute Assessment and Plan: Stable, continue home Losartan (4) Hyperlipidemia: Qualifiers: Hyperlipidemia type: mixed hyperlipidemia Qualified Code(s): E78.2 - Mixed hyperlipidemia Code(s): E78.5 - Hyperlipidemia, unspecified Status: Acute Assessment and Plan: Continue statin History of Present Illness History of Present Illness Consult date/time: 06/15/22 16:16 Requesting physician: Terry Colbert MD Consult reason: chest pain Reason For Visit: NSTEMI Narrative: We are consulted for chest pain, NSTEMI. This is a patient of Dr. sIidro's with coronary artery disease. Patient underwent bypass grafting in June of 2009. The patient had critical ostial LAD stenosis and received an LESTER graft to the LAD and did well after that. The patient following that had episodes of chest pain that led to follow up angiograms in 2012 and again in 2015 which demonstrated him to be well revascularized. Patient was then seen in May 2019 with the abrupt onset of chest pain. He had acute STEMI in the inferior leads so he underwent emergent coronary angiography. He was found to have subtotal occlusion of the large OM branch. His YODER was patent and his non-dominant RCA had no significant disease. Patient underwent PCI to the OM and did well after that. He did have a pseudoaneurysm of the left femoral artery after the procedure which was treated with a thrombin injection with effective resolution. Patient has continued to follow with Dr. Isidro in the office. Patient reports that he awoke 6:30 this morning with chest pain. Left sided with pain in the shoulder. Feels like his previous ischemic type of chest pain. ER evaluation showed no ischemic changes on EKG. Troponins: 0.046 --> 0.067 --> 0.100. Patient started on Heparin drip. He is currently chest pain free. Patient is no longer on Brilinta. He states that because of significant bruising, he cut back on his ASA to every third day. Review of Systems Review of Systems: All systems reviewed & are unremarkable except as noted in HPI and below (HPI) [facility] Past Medical History Medical History CAD (coronary artery disease) Coronary artery disease Hyperlipidemia Hypertension Rheumatoid arthritis Type 2 diabetes mellitus Surgical History Surgical History History of cardiac cath History of coronary artery stent placement History of single vessel coronary artery bypass (2009) YODER to LAD. Family History Family History Mother Breast cancer Father Coronary artery disease Social History Social History Social History: Surrogate medical decision maker: Ivelisse [place], spouse. Code status: Full code. Smoking status: Never smo
[2022-06-15 16:35] LABS: Glucose Point of Care 98 mg/dl (65-105)
[2022-06-15 17:10] LABS: Hemoglobin A1C 7.2 % (<5.7)
[2022-06-15] MEDS: PERFLUTREN LIPID MICROSPHERES 1.5 ML VIAL DILUTED TO 10 ML TOTAL VOLUME IV PUSH (17:22)
--- NOTE | 2022-06-15 17:23 | IVDEFINITY ---
Prior to administration of IV Definity the patient was educated on the risks and benefits of the imaging enhancing agent including potential adverse side effects. The patient verbalized understanding. Allergies were verified. No exclusion criteria were identified and at least one of the following inclusion criteria were met: 1) physician request, 2) patient technically difficult to image (per the [place] [employer] guidelines of two or more segments not discernable within the apical view), or 3) questionable left ventricular function. ?
[2022-06-15 17:37] LABS: Cholesterol 167 mg/dL (0-200); HDL Direct 59 mg/dL; Triglycerides 124 mg/dL (<150)
[2022-06-15 17:48] LABS: LDL Cholesterol Direct 86 mg/dL
--- NOTE | 2022-06-15 18:30 | ADMIMU ---
This patient, Abdifatah Washington, was admitted to IMU status, and placed in IMU Room 209-01. Patient/family oriented to hospital policies and general routines including ID bracelet, bed and alarms, visiting hours, pain management, procedures, bathroom and other care routines, personal items, smoking policy, room service/diet, and visiting hours. Valuables list has been completed. Information on how to activate the Rapid Response Team has been discussed. Patient/Family are encouraged to report perceived risks to care and to ask questions if they do not understand what they are told or what they should do.
[2022-06-15 20:28] LABS: Glucose Point of Care 130 mg/dl (65-105)
[2022-06-15 20:45] LABS: Partial Thromboplastin Time 48.1 SECONDS (22.3-36.8)
[2022-06-15] MEDS: METOPROLOL TARTRATE 25 MG TABLET PO (21:51)
[2022-06-16] VITALS (15 sets, daily range): BP systolic 113–153; BP diastolic 65–80; PULSE 61–88; RESP 14–18; TEMP 36.2–36.9; O2SAT 94–100
[2022-06-16 04:31] LABS: Basophils Absolute Auto 0.1 K/mm3 (0.0-0.1); Eosinophils Absolute Auto 0.1 K/mm3 (0-0.3); Eosinophils Percent Auto 1.1 % (0-4.4); Hemoglobin 15.3 g/dL (14.0-18.0); Immature Granulocyte Absolute 0.01 K/mm3 (0.00-0.031); Immature Granulocyte Percent A 0.2 % (0-0.5); Lymphocytes Absolute Auto 1.69 K/mm3 (0.9-3.2); Lymphocytes Percent Auto 27.1 % (18.3-44.2); Mean Corpuscular Hemoglobin 29.6 pg (26-34); Mean Platelet Volume 9.9 fl (7.4-10.4); Monocytes Absolute Auto 0.5 K/mm3 (0.1-0.6); Monocytes Percent Auto 8.2 % (2.6-8.5); Neutrophils Absolute Auto 3.9 K/mm3 (1.3-6.7); Neutrophils Percent Auto 62.4 % (45.5-73.1); Platelet Count Result 181 k/mm3 (150-375); Red Blood Count 5.17 M/mm3 (4.6-6.20); Red Cell Distribution Width 12.7 % (11.5-14.5); White Blood Count 6.2 K/mm3 (4.5-10.0)
[2022-06-16 05:09] LABS: Alanine Aminotransferase 42 U/L (6-50); Albumin Level 4.3 g/dL (3.5-5.1); Alkaline Phosphatase 55 U/L (38-126); Anion Gap 5 mmol/L (8-16); Aspartate Amino Transferase 34 U/L (17-59); Blood Urea Nitrogen 15 mg/dL (9-20); Calcium 8.9 mg/dL (8.4-10.2); Carbon Dioxide 25 mmol/L (22-30); Chloride 105 mmol/L (98-107); Estimated CRCL calculation 75 ml/min; Estimated Glomerular Filt Rate > 60; Glucose 108 mg/dL (65-110); Magnesium 2.3 mg/dL (1.6-2.3); Potassium 4.3 mmol/L (3.4-5.0); Sodium 135 mmol/L (137-145)
[2022-06-16] MEDS: SODIUM CHLORIDE 0.9% IV 500 ML 100 ML IV CONT (05:33)
[2022-06-16 05:39] LABS: Partial Thromboplastin Time 130.9 SECONDS (22.3-36.8)
[2022-06-16 07:56] LABS: Glucose Point of Care 121 mg/dl (65-105)
[2022-06-16] MEDS: ASPIRIN 81 MG CHEWABLE TABLET PO (08:04)
[2022-06-16] MEDS: CLOPIDOGREL BISULFATE 75 MG TABLET PO (08:04)
--- NOTE | 2022-06-16 08:19 | PC.NURSE ---
0810- to cardiac lab engineer for procedure
--- NOTE | 2022-06-16 09:15 | WPDMODSED ---
Moderate Sedation Note-Pt Data Patient Data Diagnosis: NSTEMI Present Complaint: NSTEMI Procedure to be performed/Plan: Coronary angiography, bypass graft angiography, LHC, +/- PCI Allergies Allergy/AdvReac Type Severity Reaction Status Date / Time morphine Allergy Unknown Hives / Verified 06/15/22 09:56 Red Face Penicillins Allergy Unknown Hives Verified 06/15/22 09:56 Home Medications Medication Instructions Recorded Confirmed Type dapagliflozin 5 mg tablet (Farxiga) 10 mg PO DAILY 05/07/19 06/15/22 History rosuvastatin 40 mg tablet 40 mg PO DAILY 05/07/19 06/15/22 History baricitinib 2 mg tablet (Olumiant) 2 mg PO DAILY 05/09/19 06/15/22 History losartan 25 mg tablet 12.5 mg PO DAILY #30 tabs 05/09/19 06/15/22 Rx metoprolol tartrate 25 mg tablet 25 mg PO Q12HR #60 tabs 05/09/19 06/15/22 Rx nitroglycerin 0.4 mg sublingual 0.4 mg sublingual DIRECTED PRN 05/09/19 06/15/22 Rx tablet chest pain #25 tabs semaglutide 0.25 mg or 0.5 mg (2 0.05 mg subcut WEEKLY 11/09/21 06/15/22 History mg/1.5 mL) subcutaneous pen injector (Ozempic) aspirin 81 mg chewable tablet 81 mg PO DIRECTED 12/16/21 06/15/22 History (Children's Aspirin) Current Medications: Active Medications Acetaminophen (Acetaminophen 325 Mg Tablet) 650 mg PO Q6H PRN PRN Reason: Mild Pain (1-3) or Fever Aspirin (Aspirin 81 Mg Chewable Tablet) 81 mg PO DAILY@0800 [facility] Last Admin: 06/16/22 08:04 Dose: 81 mg Baricitinib (Baricitinib 2 Mg Tablet) 2 mg PO DAILY [facility] Clopidogrel Bisulfate (Clopidogrel Bisulfate 75 Mg Tablet) 75 mg PO QAM [facility] Last Admin: 06/16/22 08:04 Dose: 75 mg Dextrose (Dextrose 50% 25 Gm/50 Ml Syringe) 12.5 gm IV PUSH PRN PRN; Protocol PRN Reason: Hypoglycemia Empagliflozin (Empagliflozin 25 Mg Tablet) 25 mg PO DAILY [facility] Glucagon (Glucagon For Inj 1 Mg Vial) 1 mg IM PRN PRN; Protocol PRN Reason: Hypoglycemia Glucose (Glucose Oral Gel 15 Gm Of Glucse In 37.5 Gm Tube) 15 gm PO PRN PRN; Protocol PRN Reason: Hypoglycemia Heparin Sodium (Porcine) (Heparin Sodium 5,000 Units/Ml Vial) 4,000 units IV PUSH PRN PRN PRN Reason: aPTT less than 55 seconds Last Admin: 06/15/22 21:51 Dose: 4,000 units Heparin Sodium (Porcine) (Heparin Sodium 5,000 Units/Ml Vial) 3,000 units IV PUSH PRN PRN PRN Reason: aPTT 55 - 70 seconds Heparin Sodium/Dextrose (Heparin Sodium/D5w 100 Units/Ml) 25,000 units in 250 mls @ 0 mls/hr IV CONT .Q0M DORINDA; Protocol Last Titration: 06/16/22 08:27 Dose: 0 units/hr, 0 mls/hr Dextrose (Dextrose 5% 1,000 Ml) 1,000 mls @ 100 mls/hr IVPB PRN PRN; Protocol PRN Reason: Hypoglycemia Sodium Chloride (Normal Saline Iv) 500 mls @ 100 mls/hr IV CONT .Q5H [facility] Last Infusion: 06/16/22 08:05 Dose: 0 mls/hr Sodium Chloride (Normal Saline Iv) 1,000 mls @ 125 mls/hr IV CONT .Q8H ONE Stop: 06/16/22 17:12 Insulin Aspart (Insulin Aspart (*Bkc) 100 Units/Ml) 2 - 5 units SUB-Q TIDWM [facility]; Protocol Last Admin: 06/16/22 08:29 Dose: Not Given Losartan Potassium (Losartan Potassium 12.5 Mg Tablet) 12.5 mg PO DAILY [facility] Metoprolol Tartrate (Metoprolol Tartrate 25 Mg Tablet) 25 mg PO Q12HR [facility] Last Admin: 06/15/22 21:51 Dose: 25 mg Nitroglycerin (Nitroglycerin Sl 0.4 Mg Tablet) 0.4 mg SUBLINGUAL DIRECTED PRN PRN Reason: chest pain Ondansetron HCl (Ondansetron Inj 4 Mg/2 Ml Vial) 4 mg IV PUSH Q4H PRN PRN Reason: Nausea Rosuvastatin Calcium (Rosuvastatin 10 Mg Tablet) 40 mg PO QAM [facility] Rosuvastatin Calcium (Rosuvastatin 10 Mg Tablet) 40 mg PO DAILY [facility] Sedation/Anesthesia: No previous sedation/anesthesia problems (including family history). [facility] Past Medical History Medical History CAD (coronary artery disease) Coronary artery disease Hyperlipidemia Hypertension Rheumatoid arthritis Type 2 diabetes mellitus Surgical History Surgical History History of cardiac cath History of
--- NOTE | 2022-06-16 09:17 | WPDCARDPROC ---
Cardiac Cath Procedure Note Date of procedure:: 06/16/22 Performing physician:: CATHETERIZATION LABORATORY REPORT Procedure Date: 06/16/2022 Rock Crusher: Jessica Perez M.D., [facility]? Referring Physician: Jessica Perez M.D. ? Anesthesia: Versed and Fentanyl were ordered and given in my presence at 08:40, procedure ended at 09:00. Supervision of nurse monitored moderate sedation with Versed and Fentanyl was provided for 20 minutes. Total of Versed 2mg and Fentanyl 50mcg were administered by the Housekeeping Laundry Worker RN Laine Hartley. Pre-op Diagnosis: Coronary artery disease Post-op Diagnosis: 1. Chronic occlusion of the LAD at its ostium with patent YODER-LAD bypass graft 2. Patent stent in OM. No obstructive disease in LCX. 3. Left dominant coronary artery system. 4. Non-dominant RCA without obstructive disease. 5. Left ventricular end-diastolic pressure of 18mmHg Procedure(s): 1. Moderate sedation 2. Ultrasound-guided access of the right common femoral artery 3. Coronary angiography 4. Left heart cath 5. Bypass graft angiography 6. Angioseal closure of the right common femoral artery Access Site: Right common femoral artery Brief History and Clinical Indications: Patient is a 66-year-old male with a history of CAD s/p prior CABG and PCI who is referred for cardiac cath for NSTEMI. All risks, benefits and alternatives to left heart catheterization with or without percutaneous coronary intervention was discussed at length with the patient. Risk of complications including but not limited to bleeding, infection, arrhythmia, stroke, worsening kidney function, blood loss, groin hematoma, limb loss, emergency coronary artery bypass grafting, and even were discussed with the patient and all questions were answered. The patient understood and wished to proceed. Time out called, patient name, date of , medical record number, allergies, procedure performed, identify Rock Crusher, patient and staff member concurred with accurate data, procedure carried on. Findings: LEFT HEART CATHETERIZATION FINDINGS: 1. Left main: The left main coronary artery is widely patent without any significant obstructive disease. 2. Left anterior descending: The LAD is chronically occluded at its ostium. The mid-distal LAD receives flow from YODER graft. 3. Left circumflex: The left circumflex is the dominant vessel. The left circumflex artery has mild luminal irregularities without any significant obstructive angiographic disease. Widely patent stent in the ostial-proximal OM-1 vessel. Remainder of the vessel with mild-moderate luminal irregularities without any significant obstructive angiographic disease. 4. Right coronary artery: The RCA is a small caliber non-dominant vessel. The RCA has mild diffuse disease without any significant obstructive angiographic disease. 5. Left ventricle: A. End-diastolic pressure 18mmHg. B. LV gram deferred. C. No significant gradient across aortic valve on catheter pullback. 6. Bypass graft angiography: A. YODER-LAD bypass graft is widely patent. Description of Procedure: Informed consent signed and placed in the chart. Patient transferred to chemistry laboratory technician room. Prepped and draped in usual sterile fashion. 2% lidocaine in right groin area. Micropuncture needle used to access right common femoral artery with Seldinger technique under fluoroscopic guidance. J wire advanced, micropuncture cannula placed. Right iliofemoral angiogram performed, access confirmed and micropuncture cannula exchanged for 5-FR sheath. 5F FL4 diagnostic catheter engaged Left Main Coronary Artery. 5F FR 4 diagnostic catheter engaged Right Coronary Artery. 5F IM diagnostic catheter engaged in the YODER. Multiple orthogonal angiogram obtained and reviewed 5F Pigtail diagnostic catheter crossed aortic valve to obtain LVEDP, LV angiogram deferred. Hemostasis was achieved by 6F Angioseal. ? Assessment: 1. Chronic occlusion of the LAD at its osti
--- NOTE | 2022-06-16 09:46 | PM.PNCARD ---
Progress Note: A&P Assessment and Plan (1) Non-ST elevation [place] (NSTEMI): Code(s): I21.4 - Non-ST elevation (NSTEMI) myocardial infarction Status: Acute Assessment and Plan: TTE with normal LVEF without significant valvular disease. Cardiac cath with: 1. Chronic occlusion of the LAD at its ostium with patent YODER-LAD bypass graft 2. Patent stent in OM. No obstructive disease in LCX. 3. Left dominant coronary artery system. 4. Non-dominant RCA without obstructive disease. 5. Left ventricular end-diastolic pressure of 18mmHg No intervention needed, coronary and bypass graft findings are pretty good. Will stop his Plavix and Heparin drip. Continue with ASA 81mg once daily and with high-intensity statin. Will have patient follow-up with Dr. Isidro as an outpatient. Okay to discharge today from our standpoint. (2) Coronary artery disease: Code(s): I25.10 - Atherosclerotic heart disease of [place] coronary artery without angina pectoris Status: Acute Assessment and Plan: ASA daily, statin (3) Hyperlipidemia: Qualifiers: Hyperlipidemia type: mixed hyperlipidemia Qualified Code(s): E78.2 - Mixed hyperlipidemia Code(s): E78.5 - Hyperlipidemia, unspecified Status: Acute Assessment and Plan: Continue statin (4) Hypertension: Qualifiers: Hypertension type: essential hypertension Qualified Code(s): I10 - Essential (primary) hypertension Code(s): I10 - Essential (primary) hypertension Status: Acute Assessment and Plan: Stable, continue home Losartan Plan Recommendations discussed with the Hospitalist. Subjective Date/time seen: 06/16/22 09:46 Interval history: Reason for visit: NSTEMI HPI: We are consulted for chest pain, NSTEMI. This is a patient of Dr. Isidro's with coronary artery disease. Patient underwent bypass grafting in June of 2009. The patient had critical ostial LAD stenosis and received an LESTER graft to the LAD and did well after that. The patient following that had episodes of chest pain that led to follow up angiograms in 2012 and again in 2015 which demonstrated him to be well revascularized. Patient was then seen in May 2019 with the abrupt onset of chest pain. He had acute STEMI in the inferior leads so he underwent emergent coronary angiography. He was found to have subtotal occlusion of the large OM branch. His YODER was patent and his non-dominant RCA had no significant disease. Patient underwent PCI to the OM and did well after that. He did have a pseudoaneurysm of the left femoral artery after the procedure which was treated with a thrombin injection with effective resolution. Patient has continued to follow with Dr. Isidro in the office. Patient reports that he awoke 6:30 this morning with chest pain. Left sided with pain in the shoulder. Feels like his previous ischemic type of chest pain. ER evaluation showed no ischemic changes on EKG. Troponins: 0.046 --> 0.067 --> 0.100. Patient started on Heparin drip. He is currently chest pain free. Patient is no longer on Brilinta. He states that because of significant bruising, he cut back on his ASA to every third day. Date of service 06/16: No acute events this morning. Cardiac cath this morning. Review of Systems Review of Systems: 8 point ROS obtained. Negative, unless stated in HPI. Exam Const: General: comfortable and no acute distress HENMT: Mouth: Yes moist mucous membranes Eyes: General: appearance normal, both eyes and all related structures Sclera: sclerae normal Neck: Neck: supple Resp: Effort & Inspection: normal respiratory effort Auscultation: clear to auscultation bilaterally Cardio: Rate: regular rate Rhythm: regular rhythm Heart sounds: no murmurs GI: GI Palp: Yes Soft to palpation and No Tenderness to palpation present (GI) Skin: General skin exam: normal color Neuro: Speech: normal speech Extrem: General: nor
[2022-06-16] MEDS: EMPAGLIFLOZIN 25 MG TABLET PO (11:15)
[2022-06-16] MEDS: LOSARTAN POTASSIUM 12.5 MG TABLET PO (11:15)
[2022-06-16] MEDS: METOPROLOL TARTRATE 25 MG TABLET PO (11:15)
[2022-06-16] MEDS: BARICITINIB 2 MG TABLET PO (11:15)
[2022-06-16] MEDS: ROSUVASTATIN 10 MG TABLET 40 MG PO (11:16)
--- NOTE | 2022-06-16 11:18 | PC.NURSE ---
1045- returned to room post cardiac cath- right groin soft / no hematoma- dressing CDI; +2 pedal pulse- pt on BR until 1100
--- NOTE | 2022-06-16 13:27 | PM.DS ---
DS: Admitting Diagnosis Discharge Date 06/16/2022 Admitting Diagnosis 06/15/2022 DS: Discharge Diagnosis Discharge Diagnosis (1) Chest pain: Code(s): R07.9 - Chest pain, unspecified Status: Acute (2) Elevated troponin: Code(s): R77.8 - Other specified abnormalities of plasma proteins Status: Acute (3) Coronary artery disease: Code(s): I25.10 - Atherosclerotic heart disease of [place] coronary artery without angina pectoris Status: Acute (4) Hypertension: Qualifiers: Hypertension type: essential hypertension Qualified Code(s): I10 - Essential (primary) hypertension Code(s): I10 - Essential (primary) hypertension Status: Acute (5) Type 2 diabetes mellitus: Code(s): E11.9 - Type 2 diabetes mellitus without complications Status: Acute (6) Hyperlipidemia: Qualifiers: Hyperlipidemia type: mixed hyperlipidemia Qualified Code(s): E78.2 - Mixed hyperlipidemia Code(s): E78.5 - Hyperlipidemia, unspecified Status: Acute Plan The patient presented to the emergency department for evaluation of chest pressure similar to that he experienced prior to his bypass as detailed in HPI. Labs, imaging, EKG, and all reports were personally reviewed. EKG shows no acute ST segment depressions or elevations and appears unchanged when compared to prior tracings. His troponin is mildly bumped and is being trended to peak. Given his history, he has been started on a heparin drip and he is being admitted for close monitoring and Cardiology consultation. He will be NPO after midnight for possible cardiac catheterization tomorrow. Continue aspirin, beta-manny, and statin. Pt seen by cardiology. Pt had TTE and cardiac cath. TTE with normal LVEF without significant valvular disease. Cardiac cath showed: 1. Chronic occlusion of the LAD at its ostium with patent YODER-LAD bypass graft 2. Patent stent in OM. No obstructive disease in LCX. 3. Left dominant coronary artery system. 4. Non-dominant RCA without obstructive disease. 5. Left ventricular end-diastolic pressure of 18mmHg No intervention needed, coronary and bypass graft findings are pretty good. Pt can stop plavix and continue with ASA 81mg once daily and with high-intensity statin. Pt to follow up with cardiology on outpatient. DS: Summary Hospital Course Hospital Course: Pt seen by cardiology. Pt had TTE and cardiac cath. TTE with normal LVEF without significant valvular disease. Cardiac cath showed: 1. Chronic occlusion of the LAD at its ostium with patent YODER-LAD bypass graft 2. Patent stent in OM. No obstructive disease in LCX. 3. Left dominant coronary artery system. 4. Non-dominant RCA without obstructive disease. 5. Left ventricular end-diastolic pressure of 18mmHg No intervention needed, coronary and bypass graft findings are pretty good. Pt can stop plavix and continue with ASA 81mg once daily and with high-intensity statin. Pt to follow up with cardiology on outpatient. Time Spent with Patient Time attestation: Total time spent providing and/or coordinating discharge services: Exam Narrative: General: Well-developed male sitting up in bed in no distress. Weight: 90 kg. BMI: 28.5. HEENT: PERRL, EOMI. Sclera anicteric. Oral mucosa moist. Oropharynx clear. Neck: Supple. Respiratory: Lungs are clear to auscultation bilaterally. Cardiovascular: Regular rate and rhythm with S1-S2. Chest: No tenderness to palpation over the chest wall. Gastrointestinal: Abdomen is soft, nontender, and nondistended with positive bowel sounds. Skin: Warm and dry. No rash or lesions on limited exam. Extremities: No cyanosis, clubbing, or edema. Radial and pedal pulses intact. Neurological: Alert. Cranial nerves 2-12 are grossly intact. No gross focal deficits to casual conversation. Psychiatric: Pleasant and cooperative with normal mood and affect. Judgment and insight intact. DS: Data
--- NOTE | 2022-06-16 13:46 | PC.NURSE ---
discharged order- instructions given to pt and -including the angio seal card and instructions on wound care / activity - both verbalized understanding- discharged home
== END 2022-06-16 13:45 | disposition home or self-care (01) | DRG 287 ==
LOC: ANHED 11:36 → ANHIMU 13:24
PROVIDERS: Internal Medicine; Internal Medicine Cardiovascular Disease; Physician Assistant; Admitting Provider Family Medicine; Emergency Provider Emergency Medicine; PCP Specialist; Visit Provider Family Medicine
PROC: 4A023N7 Measurement of Cardiac Sampling and Pressure, Left Heart, Percutaneous Approach (ICD-10-PCS; CPT 93459; principal; 2022-06-16 08:30)
PROC: B215YZZ Fluoroscopy of Left Heart using Other Contrast (ICD-10-PCS; 2022-06-16 08:30)
DX: I25.10 Atherosclerotic heart disease of native coronary artery without angina pectoris (principal); I25.82 Chronic total occlusion of coronary artery; I10 Essential (primary) hypertension; E11.9 Type 2 diabetes mellitus without complications; E78.2 Mixed hyperlipidemia; M06.9 Rheumatoid arthritis, unspecified; Z95.5 Presence of coronary angioplasty implant and graft; Z95.1 Presence of aortocoronary bypass graft; Z88.0 Allergy status to penicillin; Z88.5 Allergy status to narcotic agent; Z79.899 Other long term (current) drug therapy
CPT/HCPCS: 36415; 71046; 80053; 80061; 82948; 83036; 83690; 83735; 84484; 85025; 85380; 85610; 85730; 93005; 93459; 96365; 96366; 96374; 99285; A9270; C1760; C1769; C1887; C1894; C8929; G0269; G0378; J1644; J2250; J3010; J7040; Q9957

== ENCOUNTER 2024-02-20 18:59 | Emergency (ER) | payer OTHER, MEDICARE, SELFPAY ==
--- NOTE | 2024-02-20 19:02 | ECG_ITS ---
Test Date: 2024-02-20 19:13:28 Measurements Intervals [place] Rate: 85 P: 38 OR: 189 QRS: 26 QRSD: 96 T: 44 QT: 358 QTc: 426 Interpretive Statements SINUS RHYTHM INCOMPLETE RIGHT BUNDLE BRANCH BLOCK BORDERLINE T WAVE ABNORMALITY- ANTERIOR LEADS BASELINE ARTIFACT- I, II, III, AVR, AVL, AVF BORDERLINE ECG No previous ECG available for comparison Electronically Signed On 02-21-2024 05:50:57 CHIEF CUSTOMER OFFICER by Noah Ariza D.O.
[2024-02-20 19:05] VITALS: BP 155/74; PULSE 87; RESP 15; TEMP 36.5; O2SAT 99
[2024-02-20 19:48] VITALS: O2SAT 98
[2024-02-20 19:51] VITALS: BP 135/73; PULSE 78; RESP 18; TEMP 37.5; O2SAT 99
[2024-02-20 21:02] LABS: Add Urine Microscopic? NO; Appearance Urine Clear (Clear); Bilirubin Urine Negative (Negative); Blood Urine Negative (Negative); Color Urine Yellow (Yellow); Glucose Urine UA 3+ mg/dL (Negative); Ketones Urine Negative (Negative); Leukocyte Esterase Ur Negative LEU/UL (Negative); Nitrate Urine Negative (Negative); Protein Urine Negative (Negative); Specific Grav Ur 1.037 (1.001-1.035); Urobilinogen Urine 0.2 mg/dL (<2.0); pH Urine 5.5 (5.0-9.0)
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
[2024-02-20 21:12] LABS: Alanine Aminotransferase 57 U/L (6-50); Albumin Level 4.6 g/dL (3.5-5.1); Alkaline Phosphatase 53 U/L (38-126); Anion Gap 9 mmol/L (4-12); Aspartate Amino Transferase 38 U/L (17-59); Bilirubin,Total 0.7 mg/dL (0.2-1.3); Blood Urea Nitrogen 21 mg/dL (9-20); Calcium 9.2 mg/dL (8.4-10.2); Carbon Dioxide 23 mmol/L (22-30); Chloride 105 mmol/L (98-107); Estimated CRCL calculation 66 ml/min; Estimated Glomerular Filt Rate > 60; Glucose 238 mg/dL (65-110); Potassium 4.3 mmol/L (3.4-5.0); Sodium 137 mmol/L (137-145)
[2024-02-20 21:22] LABS: Troponin I < 0.012 ng/mL (0.000-0.034)
[2024-02-20 22:03] LABS: Creatine Kinase 76 U/L (55-170)
[2024-02-20 22:15] LABS: Basophils Absolute Auto 0.1 K/mm3 (0.0-0.1); Basophils Percent Auto 0.6 % (0.2-1.2); Eosinophils Percent Auto 0.3 % (0-4.4); Hematocrit 43.7 % (42.0-52.0); Hemoglobin 15.2 g/dL (14.0-18.0); Immature Granulocyte Absolute 0.02 K/mm3 (0.00-0.031); Immature Granulocyte Percent A 0.2 % (0-0.5); Lymphocytes Percent Auto 17.8 % (18.3-44.2); Mean Corpuscular HGB Conc 34.8 g/dl (32-36); Mean Corpuscular Hemoglobin 30.6 pg (26-34); Mean Corpuscular Volume 88.1 fl (80-100); Mean Platelet Volume 9.7 fl (7.4-10.4); Monocytes Absolute Auto 0.6 K/mm3 (0.1-0.6); Monocytes Percent Auto 6.8 % (2.6-8.5); Neutrophils Absolute Auto 6.7 K/mm3 (1.3-6.7); Neutrophils Percent Auto 74.3 % (45.5-73.1); Platelet Count Result 239 k/mm3 (150-375); Red Blood Count 4.96 M/mm3 (4.6-6.20); Red Cell Distribution Width 12.7 % (11.5-14.5)
[2024-02-20 22:26] LABS: Lactic Acid Reflex 1.5 mmol/L (0.7-2.0)
[2024-02-20 23:54] VITALS: BP 132/80; PULSE 69; RESP 16; O2SAT 100
== END 2024-02-20 23:55 | disposition home or self-care (01) ==
PROVIDERS: Emergency Provider Emergency Medicine
DX: T75.4XXA Electrocution, initial encounter (principal); T23.011A Burn of unspecified degree of right thumb (nail), initial encounter; T23.042A Burn of unspecified degree of multiple left fingers (nail), including thumb, initial encounter; T31.0 Burns involving less than 10% of body surface; I25.10 Atherosclerotic heart disease of native coronary artery without angina pectoris; I10 Essential (primary) hypertension; E78.5 Hyperlipidemia, unspecified; E11.9 Type 2 diabetes mellitus without complications; M06.9 Rheumatoid arthritis, unspecified; Z95.5 Presence of coronary angioplasty implant and graft; Z95.1 Presence of aortocoronary bypass graft; Z77.22 Contact with and (suspected) exposure to environmental tobacco smoke (acute) (chronic); Z79.85 Long-term (current) use of injectable non-insulin antidiabetic drugs; Z79.82 Long term (current) use of aspirin; Z79.899 Other long term (current) drug therapy; Z79.84 Long term (current) use of oral hypoglycemic drugs; I45.10 Unspecified right bundle-branch block; R94.31 Abnormal electrocardiogram [ECG] [EKG]; W86.8XXA Exposure to other electric current, initial encounter
CPT/HCPCS: 36415; 80053; 81003; 82550; 83605; 84484; 85025; 93005; 99284